=== PATIENT | female | born 1985 | race African-American/Black ===

== ENCOUNTER 2024-07-29 01:02 | Emergency (ER) | payer OTHER ==
[2024-07-29 01:11] VITALS: BP 127/93; PULSE 74; RESP 20; TEMP 98.4; BMI 34.3
[2024-07-29] MEDS ORDERED: ACETAMINOPHEN 325 MG TABLET (FP) ONE (01:53)
[2024-07-29] MEDS ORDERED: KETOROLAC TROMETHAMINE 30 MG/1 ML VIAL ONE (01:54)
[2024-07-29] MEDS ORDERED: LIDOCAINE 5% TOPICAL PATCH ONE (01:54)
[2024-07-29] MEDS: ACETAMINOPHEN 325 MG TABLET (FP) PO ONE (02:17)
[2024-07-29] MEDS: KETOROLAC TROMETHAMINE 30 MG/1 ML VIAL IM ONE (02:17)
[2024-07-29] MEDS: LIDOCAINE 5% TOPICAL PATCH TP ONE (02:17)
[2024-07-29] MEDS ORDERED: LIDOCAINE 5% TOPICAL PATCH TP ONE (03:49)
[2024-07-29] MEDS ORDERED: LIDOCAINE PATCH REMOVAL MC SCH ×2 (22:00)
== END 2024-07-29 03:42 | disposition home or self-care (01) ==
LOC: JER 01:02
DX: S09.90XA Unspecified injury of head, initial encounter (principal); M79.632 Pain in left forearm; M54.9 Dorsalgia, unspecified; M79.605 Pain in left leg; W01.198A Fall on same level from slipping, tripping and stumbling with subsequent striking against other object, initial encounter; Y92.512 Supermarket, store or market as the place of occurrence of the external cause
CPT/HCPCS: 70450-TC; 72125-TC; 73090-TC-LT-FY; 73110-TC-LT-FY; 73590-TC-LT-FY; 99284-25